=== PATIENT | male | born 1985 | race African-American/Black ===

== ENCOUNTER 2020-03-03 07:14 | Emergency (ER) | payer MEDICAID ==
[~2020-03-03] VITALS: Ht 165.1 cm; Wt 68.0 kg
[2020-03-03] MEDS ORDERED: KETOROLAC 30MG/ML VIAL IV STA (07:41)
[2020-03-03] MEDS ORDERED: SODIUM CHLORIDE 0.9% 1,000 ML IV ONE (07:45)
[2020-03-03] MEDS ORDERED: METOCLOPRAMIDE HCL 10MG/2ML VIAL IV ONE (07:45)
[2020-03-03] MEDS ORDERED: IBUP-2030 MT (10:10)
[2020-03-03] MEDS ORDERED: METO-293 MT (10:10)
[2020-03-03 10:24] VITALS: BP 138/89
== END 2020-03-03 10:26 | disposition home or self-care (01) ==
LOC: ER 07:18
DX: G43.909 Migraine, unspecified, not intractable, without status migrainosus (principal); R03.0 Elevated blood-pressure reading, without diagnosis of hypertension
CPT/HCPCS: 96361; 96374; 96375; 99284; J1885; J2765; J7030